=== PATIENT | female | born 1950 | race Caucasian/White ===

== ENCOUNTER → 2016-08-30 | Outpatient (CLI) | payer OTHER ==
[~2016-08-30] MED LIST: ASPI81TA21 PO; DIPYRIDAMOLE PO; LEVO100T84 PO; PRAV20TA PO
--- NOTE | 2016-08-30 12:59 | DIAGNOSTIC IMAGING REPORT ---
PET/CT FULL BODY CLINICAL HISTORY: MELANOMA COMPARISON STUDY: 05/19/2016 FINDINGS: The patient was injected with 11.3 mCi of F 18 labeled FDG. Following the standard induction phase, PET/CT scanning was performed from the skull vertex to the feet. Activity within the brain is unremarkable. Activity within the neck is felt to be physiologic. Activity within the thorax is felt to be physiologic. There is right basilar pulmonary scarring. There is no pathologic ovi enlargement. There is no pathologic ovi activity. The abdomen, there is physiologic urinary tract and bowel activity. There is no pathologic hepatic activity. There is no pathologic ovi activity. There is cholelithiasis. There is fatty atrophy the pancreas. Activity within the lower extremities is felt to be physiologic. There is no pathologic skeletal activity IMPRESSION: No evidence of FDG avid metastatic disease. Electronically signed by: Braden Oliver M.D. 08/30/2016 12:58 PM Dictated Date/Time: 08/30/2016 12:49 PM
== END | disposition home or self-care (01) ==
LOC: C.PET 09:40
PROVIDERS: ATTEND Nurse Practitioner
DX: C43.62 Malignant melanoma of left upper limb, including shoulder (principal)

== ENCOUNTER → 2016-12-29 | Outpatient (CLI) | payer OTHER ==
[~2016-12-29] MED LIST changes: +OPTIRAY 320 IV PRN
--- NOTE | 2016-12-29 13:45 | DIAGNOSTIC IMAGING REPORT ---
CHEST, ABDOMEN AND PELVIS CT WITH CONTRAST CT DOSE: 1341.02 mGy.cm HISTORY: MELANOMA TECHNIQUE: Multiaxial CT images of the chest, abdomen and pelvis were performed following the intravenous administration of contrast. COMPARISON: PET CT 08/30/2016. FINDINGS: No pleural effusions. No pneumothorax. The central airways are patent. Stable punctate calcified granuloma within the left lower lobe. Stable linear scarlike densities within the right lung. No suspicious lytic or blastic osseous lesions. No significant change in the 9 mm right anterior diaphragmatic lymph node best in image 42. Stable mediastinal and hilar lymph nodes. Dominant right hilar lymph node measures 9 mm in short axis diameter. No enlarging mediastinal lymph nodes. The central pulmonary arteries are patent. Normal caliber thoracic aorta. The heart is normal in size. Subcentimeter nodular densities within the breasts remain stable. Suture material again noted within the right lung Cholelithiasis. The liver, spleen, left adrenal gland, and kidneys are unremarkable. A left retroaortic renal vein. Fatty atrophy of the pancreas. Stable 9 mm right adrenal gland nodule. Moderate calcified plaque within the aorta and iliac arteries. No retroperitoneal or mesenteric lymphadenopathy. No bowel wall thickening or obstruction. The bladder, uterus, and bilateral adnexa are unremarkable. No suspicious lytic or blastic osseous lesions. IMPRESSION: No significant change compared to the prior studies. No evidence for metastatic disease within the chest, abdomen, or pelvis. Additional findings as described above. Electronically signed by: Seven Cervantes M.D. 12/29/2016 1:44 PM Dictated Date/Time: 12/29/2016 1:32 PM
== END | disposition home or self-care (01) ==
LOC: C.CTS 10:53
PROVIDERS: ATTEND Internal Medicine Hematology & Oncology
DX: C43.62 Malignant melanoma of left upper limb, including shoulder (principal)